=== PATIENT | female | born 1940 ===

== ENCOUNTER 2020-10-16 11:00 | Inpatient (IN) | payer OTHER ==
[~2020-10-16] VITALS: Ht 160 cm; Wt 59.0 kg
[2020-10-16] MEDS ORDERED: [UNRECOGNIZED DRUG - OTHER] PO (12:22)
[2020-10-16] MEDS ORDERED: SYNTHROID88 MCG PO (12:22)
[2020-10-16] MEDS ORDERED: TOPROL XL25 M1 PO (12:22)
[2020-10-16] MEDS ORDERED: HYDROCHLO (12:23)
[2020-10-16] MEDS ORDERED: ADULT LOW DOSE81 M1 PO (12:23)
[2020-10-22] MEDS ORDERED: AMLODIPINE-VAL1 EACH (14:06)
[2020-10-22] MEDS ORDERED: HYDROCHLOROTHIA25 MG (14:07)
[2020-10-22] MEDS ORDERED: ACTICAL SOFTGE1 EACH (14:07)
[2020-10-26] MEDS ORDERED: DILTIAZEM HCL30 MG PO (10:15)
[2020-10-26] MEDS ORDERED: SYNTHROID88 MCG PO (10:15)
[2020-10-26] MEDS ORDERED: ADULT LOW DOSE81 M1 PO (10:15)
[2020-10-26] MEDS ORDERED: TOPROL XL25 M1 PO (10:15)
[2020-10-26] MEDS ORDERED: PRILOSEC OTC20 MG PO (10:16)
== END 2020-10-26 15:28 | disposition home or self-care (01) | DRG 330 ==
LOC: O/R 10-22 07:32 → SURG 10-22 07:32 → SURH 10-22 10:30 → OB/GYN 10-22 11:00 → SURG 10-22 17:22
PROVIDERS: ADMIT Surgery; ATTEND Surgery
PROC: B24BZZZ Ultrasonography of Heart with Aorta (ICD-10-PCS; 2020-10-22)
PROC: 4A033R1 Measurement of Arterial Saturation, Peripheral, Percutaneous Approach (ICD-10-PCS; 2020-10-22)
PROC: 3E0F7SF Introduction of Other Gas into Respiratory Tract, Via Natural or Artificial Opening (ICD-10-PCS; 2020-10-22)
PROC: 0DTN4ZZ Resection of Sigmoid Colon, Percutaneous Endoscopic Approach (ICD-10-PCS; principal; 2020-10-22 10:30)
DX: K57.32 Diverticulitis of large intestine without perforation or abscess without bleeding (principal); I97.89 Other postprocedural complications and disorders of the circulatory system, not elsewhere classified; E03.8 Other specified hypothyroidism; R00.2 Palpitations; I49.8 Other specified cardiac arrhythmias